=== PATIENT | male | born 1975 | race Caucasian/White ===

== ENCOUNTER 2017-03-08 04:02 | Emergency (ER) | payer OTHER ==
[2017-03-08] MEDS ORDERED: Albuterol-Ipratrop 3 mg / 0.5 (3 ml) UD ONE (05:00)
--- NOTE | 2017-03-08 13:54 | RAD ---
HISTORY: ER ORDER COMPARISON: No prior. TECHNIQUE: Chest PA and lateral FINDINGS: LUNGS: No active pulmonary disease. PLEURA: No significant pleural effusion identified. No pneumothorax apparent. CARDIOVASCULAR: Normal. OSSEOUS STRUCTURES: No significant abnormalities. VISUALIZED UPPER ABDOMEN: Normal. OTHER FINDINGS: None. IMPRESSION: No active disease.
[2017-03-08 23:00] VITALS: BMI 25.8
--- NOTE | 2017-03-08 23:03 | ED PDOC ---
HPI: CCC, URI, Sore Throat Time Seen by Provider: 03/08/17 04:15 Chief Complaint (Provider): congestion History Per: Patient History/Exam Limitations: no limitations Onset/Duration Of Symptoms: Days (3 weeks) Current Symptoms Are (Timing): Still Present Associated Symptoms: Cough, Sputum Additional Complaint(s): 41 y/o male no past medical history presents with chest congestion x 3 weeks. Associated productive cough. Patient notes difficulty taking deep breaths due to interruption by cough. States he had similar symptoms in past and his doctor prescribed Zpak which cleared it up. Denies fever, nasal congestion, throat pain, chest pain, palpitations, abdominal pain, leg pain/swelling. Patient also requesting refill of tramadol for his chronic low back pain. 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 Denies numbness/weakness lower extremities, bowel/ bladder incontinence, new injury/trauma. Past Medical History Reviewed: Historical Data, Nursing Documentation, Vital Signs - Medical History PMH: Back Problems - Surgical History Surgical History: No Surg Hx - Family History Family History: States: No Known Family Hx - Living Arrangements Living Arrangements: With Family - Social History Current smoker - smoking cessation education provided: Yes (hookah) Alcohol: None Drugs: Denies - Allergies Allergies/Adverse Reactions: Allergies Allergy/AdvReac Type Severity Reaction Status Date / Time No Known Allergies Allergy Verified 03/08/17 23:00 Review of Systems ROS Statement: Except As Marked, All Systems Reviewed And Found Negative Respiratory: Positive for: Cough Musculoskeletal: Positive for: Back Pain Physical Exam - Reviewed Nursing Documentation Reviewed: Yes Vital Signs Reviewed: Yes - Physical Exam Appears: Positive for: Well, Non-toxic, No Acute Distress Head Exam: Positive for: ATRAUMATIC, NORMAL INSPECTION, NORMOCEPHALIC Skin: Positive for: Normal Color Eye Exam: Positive for: Normal appearance ENT: Positive for: Normal ENT Inspection Cardiovascular/Chest: Positive for: Regular Rate, Rhythm Respiratory: Positive for: Normal Breath Sounds Gastrointestinal/Abdominal: Positive for: Normal Exam Back: Positive for: Normal Inspection Extremity: Positive for: Normal ROM Neurologic/Psych: Positive for: Alert, Oriented - ECG ECG: Positive for: Viewed By Me (reviewed by ED attending) ECG Rhythm: Positive for: Sinus Rhythm - Radiology X-Ray: Viewed By Me X-Ray Interpretation: No Acute Disease - Progress ED Course And Treament: chest xray, ekg, duoneb Patient educated on findings, discharged with rx Abuterol HFA, Flexeril, zpak. States he has naproxen at home, advised to take with flexeril PRN back pain. Follow up PMD 2-3 days. Return to ED for worsening/concerning symptoms. Disposition - Clinical Impression Clinical Impression: Bronchitis, Back pain - Patient ED Disposition Is Patient to be Admitted: No Counseled Patient/Family Regarding: Studies Performed, Diagnosis, Need For Followup, Rx Given - Disposition Disposition: Routine/Home Disposition Time: 05:55 Condition: IMPROVED
== END 2017-03-08 05:55 | disposition home or self-care (01) ==
LOC: H.ER 04:02
DX: J40 Bronchitis, not specified as acute or chronic (principal); M54.9 Dorsalgia, unspecified